=== PATIENT | male | born 1960 | race Caucasian/White ===

== ENCOUNTER → 2018-10-14 | Day surgery (SDC) | payer OTHER ==
[~2018-10-14] MED LIST: ACET325T9 PO; ALBU2.5V8 INH; ALPH600C5 PO; CALC200T3 PO; IV RINGERS,LACTATED 1000ML 1,000 ML IV SCH; LIDOCAINE 2% PF 5 ML VIAL. ONE; PROPOFOL 40 ML IV ONE
[2018-10-14 13:51] VITALS: BP 133/89
--- NOTE | 2018-10-15 03:31 | CONS ---
DATE OF CONSULTATION: 10/14/2018 REFERRING: [facility]. REASON: Hep C varices. HISTORY OF PRESENT ILLNESS: A 58-year-old male with past medical history significant for GERD as well as hep C, seen for surveillance endoscopy for possible varices. The patient denies any bleeding. States his risk factors for hep C are positive for skin artistry/tattoos but negative for intravenous drug use and/or blood transfusions. He has not undergone treatment at this time. Weight and appetite are stable. He has had some intermittent dysphagia, which will be further assessed mainly for solids. PAST MEDICAL HISTORY: Hep C, osteoarthritis. ALLERGIES: None. MEDICATIONS: Include albuterol, Tums, Tylenol. SOCIAL HISTORY: He is incarcerated, former smoker and drinker. FAMILY HISTORY: Significant for lung cancer in multiple family members. REVIEW OF SYSTEMS: Per records. PHYSICAL EXAMINATION: GENERAL: Reveals well-nourished, well-developed male who is alert and cooperative, in no acute distress. VITAL SIGNS: Temperature 98.3, pulse 66, respiratory rate 18. HEENT: Normocephalic and atraumatic head. Pupils and extraocular muscles are not tested. Sclerae anicteric. NECK: Supple. LUNGS: Clear. LUNGS: Clear. CARDIOVASCULAR: Reveals S1, S2 without S3, S4 or appreciable murmur. ABDOMEN: Soft abdomen, normal bowel sounds without appreciable hepatosplenomegaly. EXTREMITIES: Reveals no cyanosis, clubbing or edema. IMPRESSION: Hepatitis C. Surveillance endoscopy is recommended to assess for varices. Risks and benefits of procedure including risk of hemorrhage, perforation have been discussed. The patient is willing to proceed at this time. VENANCIO GOTTI MD DR: TEREZA/keith JOB#: [id number] / [id number]
== END | disposition home or self-care (01) ==
LOC: EEVIPCON 11:37 → ENDOS 11:37 → EDBD 11:37 → EEVIPCON 12:30
PROVIDERS: ATTEND Internal Medicine Gastroenterology
DX: K29.50 Unspecified chronic gastritis without bleeding (principal); K74.60 Unspecified cirrhosis of liver; Z87.891 Personal history of nicotine dependence; J44.9 Chronic obstructive pulmonary disease, unspecified; Z79.899 Other long term (current) drug therapy; K21.9 Gastro-esophageal reflux disease without esophagitis; Z86.19 Personal history of other infectious and parasitic diseases; M19.90 Unspecified osteoarthritis, unspecified site; Z72.89 Other problems related to lifestyle
CPT/HCPCS: 43235; J2001; J2704